=== PATIENT | female | born 2000 | race Hispanic/Latino ===

== ENCOUNTER 2021-03-08 19:45 | Emergency (ER) | payer SELFPAY ==
[~2021-03-08] VITALS: Ht 154.9 cm; Wt 92.5 kg
[2021-03-08 21:37] LABS: BASOPHILS % (AUTO) 0.4 % (0.0-5.0); EOSINOPHILS % (AUTO) 1.6 % (0.0-8.0); HEMATOCRIT 39.8 % (36-48); LYMPHOCYTES % (AUTO) 29.9 % (21.0-51.0); MEAN CORPUSCULAR HEMOGLOBIN 28.8 pg (27.0-33.0); MEAN CORPUSCULAR HGB CONC 33.2 g/dL (32.0-36.0); MEAN CORPUSCULAR VOLUME 86.9 fL (80-100); MONOCYTES % (AUTO) 6.1 % (3.0-13.0); NEUTROPHILS % (AUTO) 61.6 % (40.0-77.0); PLATELET COUNT (AUTO) 295 K/uL (130-400); RED BLOOD CELL COUNT(AUTO) 4.58 MIL/uL (4.00-5.50); RED CELL DISTRIBUTION WIDTH 12.2 % (11.0-15.5); WHITE BLOOD COUNT (AUTO) 10.7 K/uL (4.8-10.8)
[2021-03-08 21:46] LABS: APPEARANCE,URINE Cloudy (CLEAR); BILIRUBIN,URINE Negative (NEGATIVE); COLOR,URINE Yellow (YELLOW); GLUCOSE, URINE (UA) Negative (NEGATIVE); KETONES,URINE Negative (NEGATIVE); LEUKOCYTE ESTERASE ,URINE Small (NEGATIVE); NITRATE,URINE Negative (NEGATIVE); OCCULT BLOOD,URINE Negative (NEGATIVE); PH,URINE 6.5 (5.0-8.0); PROTEIN,URINE Negative (NEGATIVE)
[2021-03-08 21:49] LABS: HCG,QUAL RESULT NEGATIVE (NEGATIVE)
[2021-03-08 21:55] LABS: BACTERIA,URINE Many /HPF (None Seen); RBC,URINE 0-1 /HPF (0-1); SQUAMOUS EPITHELIAL CELL,UR Moderate /HPF (0-2)
[2021-03-08 22:00] LABS: ALBUMIN 4.3 g/dL (3.5-5.0); BILIRUBIN,TOTAL 0.5 mg/dL (0.2-1.0); CREATININE 0.8 mg/dL (0.5-1.5); POTASSIUM 3.8 mmol/L (3.5-5.1); TOTAL PROTEIN, SERUM 7.7 g/dL (6.0-8.3)
[2021-03-08] MEDS ORDERED: LACTULOSE 20 GM/30 ML UDCUP PO ONE (23:30)
[2021-03-08 23:43] VITALS: BP 142/87
== END 2021-03-08 23:45 | disposition home or self-care (01) ==
LOC: EDH 19:52
DX: K59.00 Constipation, unspecified (principal)
CPT/HCPCS: 36415; 80053; 81001; 81025; 83690; 85025; 87077; 87088; 87186

== ENCOUNTER 2023-01-09 20:43 | Emergency (ER) | payer MEDICAID ==
[~2023-01-09] VITALS: Ht 154.9 cm; Wt 91.6 kg
[2023-01-09] MEDS ORDERED: ONDANSETRON ODT 4MG TAB SL ONE (23:30)
[2023-01-09] MEDS ORDERED: TIZANIDINE HCL 2 MG TABLET PO SCH (23:30)
[2023-01-09] MEDS ORDERED: IBUPROFEN 600 MG TABLET PO ONE (23:30)
[2023-01-09] MEDS ORDERED: PREDNISONE 20 MG TABLET PO ONE (23:30)
[2023-01-09] MEDS ORDERED: DIAZEPAM 5 MG TABLET PO ONE (23:30)
[2023-01-10] MEDS ORDERED: PRED20TA3 PO (00:30)
[2023-01-10] MEDS ORDERED: IBUP-2070 PO (00:30)
[2023-01-10 00:38] VITALS: BP 132/70; PULSE 82; RESP 16; O2SAT 99
== END 2023-01-10 00:41 | disposition home or self-care (01) ==
LOC: EDH 20:43
DX: S39.012A Strain of muscle, fascia and tendon of lower back, initial encounter (principal); I48.91 Unspecified atrial fibrillation; Z88.1 Allergy status to other antibiotic agents; X58.XXXA Exposure to other specified factors, initial encounter; Y93.E9 Activity, other interior property and clothing maintenance; Y92.89 Other specified places as the place of occurrence of the external cause; Y99.8 Other external cause status
CPT/HCPCS: 72100